=== PATIENT | female | born 1955 | race Caucasian/White ===

== ENCOUNTER 2022-08-08 01:15 | Emergency (ER) | payer OTHER, MEDICARE ==
[~2022-08-08] VITALS: Ht 167.6 cm; Wt 112.7 kg
[2022-08-08 01:41] LABS: BASOPHILS % (AUTO) 0.5 % (0.0-2.0); CALCIUM, TOTAL 10.3 mg/dL (8.8-10.5); CREATININE 2.22 mg/dL (0.60-1.30); EOSINOPHILS % (AUTO) 0.5 % (1.0-6.0); HEMATOCRIT 41.7 % (36-46); HEMOGLOBIN 13.9 g/dL (12.0-16.0); LYMPHOCYTES # (AUTO) 1.7 K/uL (1.0-4.8); LYMPHOCYTES % (AUTO) 23.5 % (22.0-44.0); MEAN CORPUSCULAR HEMOGLOBIN 33.2 pg (26.0-34.0); MEAN CORPUSCULAR HGB CONC 33.3 G/dL (31.0-37.0); MEAN CORPUSCULAR VOLUME 100 fL (80-100); MONOCYTES # (AUTO) 0.4 K/uL (0.1-1.0); MONOCYTES % (AUTO) 5.9 % (2.0-9.0); NEUTROPHILS # (AUTO) 5.1 K/uL (1.8-7.7); NEUTROPHILS % (AUTO) 69.6 % (40.0-70.0); PLATELET COUNT (AUTO) 246 K/uL (150-450); POTASSIUM 3.1 mmol/L (3.5-5.1); PROTHROMBIN TIME 10.9 SEC (9.4-11.6); RED BLOOD CELL COUNT(AUTO) 4.17 MIL/uL (4.00-5.20); RED CELL DISTRIBUTION WIDTH 13.6 % (11.5-14.5)
[2022-08-08 01:47] LABS: ALBUMIN 3.9 g/dL (3.4-5.0); BILIRUBIN,TOTAL 0.2 mg/dL (0.1-1.0); TOTAL PROTEIN, SERUM 7.6 g/dL (6.4-8.2)
[2022-08-08 01:58] LABS: COVID AG,FIA SOURCE NASAL SWAB
[2022-08-08] MEDS ORDERED: IOHEXOL 350 MG/ML 100 ML VIAL ONE (02:04)
[2022-08-08] MEDS ORDERED: SODIUM CHLORIDE 0.9% 100 ML ONE (02:04)
[2022-08-08 03:55] VITALS: BP 131/48
== END 2022-08-08 04:30 | disposition home or self-care (01) ==
LOC: EMS 01:16
DX: E11.649 Type 2 diabetes mellitus with hypoglycemia without coma (principal); I10 Essential (primary) hypertension; Z20.822 Contact with and (suspected) exposure to COVID-19
CPT/HCPCS: 99285; 70496; 71045; 87426; 80053; 84484; 85025; 85610; 85730; 86850; 86900; 86901; 36415; 70498; 82948; 93005; 70450; Q9967; J7050